=== PATIENT | male | born 1935 | race Two or more races ===

== ENCOUNTER 2021-10-09 07:40 | Outpatient (CLI) | payer OTHER | END 2021-10-09 07:49 | disposition home or self-care (01) | LOC: TOM 07:40 | PROVIDERS: ATTEND Internal Medicine Gastroenterology | DX: K44.9 Diaphragmatic hernia without obstruction or gangrene (principal); K57.90 Diverticulosis of intestine, part unspecified, without perforation or abscess without bleeding; I70.8 Atherosclerosis of other arteries; K63.5 Polyp of colon; K56.601 Complete intestinal obstruction, unspecified as to cause; K65.8 Other peritonitis ==